=== PATIENT | male | born 1955 | race Hispanic/Latino ===

== ENCOUNTER 2017-06-10 23:46 | Emergency (ER) | payer OTHER ==
[2017-06-11 00:41] LABS: #Basophils 0.1 thou/uL (0.0-0.2); #Eosinphils 0.3 thou/uL (0.0-0.7); #Lymphocytes 1.6 thou/uL (1.20-3.40); #Monocytes 0.4 thou/uL (0.11-0.59); #Neutrophils 3.8 thou/uL (1.40-6.50); %Basophils 1.2 % (0.0-1.0); %Eosinophils 5.1 % (0.0-10.0); %Lymphocytes 25.7 % (21.0-51.0); %Monocytes 6.9 % (0.0-10.0); Hematocrit 37.3 % (42.0-52.0); Mean Platelet Volume 8.3 fL (7.4-10.4); White Blood Cell (WBC) Count 6.2 thou/uL (4.8-10.8)
[2017-06-11 01:16] LABS: ALT (SGPT) 9 U/L (8-55); AST (SGOT) 15 U/L (5-34); Alkaline Phosphatase 94 U/L (40-150); Anion Gap 12 mmol/L (10-20); BUN (Urea Nitrogen) 13 mg/dL (8.4-25.7); Bilirubin, Total 0.7 mg/dL (0.2-1.2); CK (CPK) 144 U/L (30-200); Calc. Creatinine Clearance 0 mL/min (70-130); Calcium 9.1 mg/dL (7.8-10.44); Carbon Dioxide 27 mmol/L (23-31); Chloride 106 mmol/L (98-107); Estimated GFR-MDRD 88; Globulin 3.4 g/dL (2.4-3.5); Protein, Total 7.4 g/dL (5.8-8.1)
[2017-06-11 01:18] LABS: Troponin I 0.011 ng/mL (< 0.028)
[2017-06-11] MEDS ORDERED: Ibuprofen 800 MG TAB ONE (02:05)
[2017-06-11] MEDS ORDERED: Pseudoephedrine HCl 30 MG TAB PO SCH (02:15)
--- NOTE | 2017-06-11 08:30 | RAD ---
PORTABLE CHEST: HISTORY: Cough. FINDINGS: The film was of suboptimal inspiration. Heart size is within normal limits. Bibasilar lung changes consistent with atelectasis versus developing infiltrate. IMPRESSION: Bibasilar lung changes compatible with atelectasis versus infiltrate. POS: [facility]
== END 2017-06-11 03:04 | disposition home or self-care (01) ==
LOC: ERS 23:46 → EEVIPCON 23:46 → ERS 06-11 03:04
DX: J06.9 Acute upper respiratory infection, unspecified (principal); J30.9 Allergic rhinitis, unspecified; Z79.899 Other long term (current) drug therapy
CPT/HCPCS: 71010; 80053; 82550; 82553; 83880; 84484; 85025; 93005